=== PATIENT | female | born 1990 | race American Indian/Alaskan Native ===

== ENCOUNTER 2020-08-05 12:24 | Emergency (ER) | payer OTHER ==
[2020-08-05 12:33] VITALS: BP 129/85
--- NOTE | 2020-08-05 13:00 | XRay Report ---
CHEST 2 VIEWS INDICATION / CLINICAL INFORMATION: Cough and +COVID. COMPARISON: None available. FINDINGS: SUPPORT DEVICES: None. HEART / MEDIASTINUM: The heart size and pulmonary vasculature are normal. LUNGS / PLEURA: No significant pulmonary or pleural abnormality. No pneumothorax. ADDITIONAL FINDINGS: No significant additional findings. IMPRESSION: No acute findings. There is no evidence of pneumonia. Signer Name: Shawn Altamirano MD Signed: 08/05/2020 12:55 PM Workstation Name: [id number]
--- NOTE | 2020-08-05 13:08 | Emergency Department Report ---
ED General Adult HPI - General Chief complaint: Upper Respiratory Infection Stated complaint: CHEST PAIN/BACK PAIN Time Seen by Provider: 08/05/20 12:31 Source: patient Mode of arrival: Ambulatory Limitations: No Limitations - History of Present Illness Initial comments: 30-year-old -[place] female patient presents with complaints of cough, body aches, loss of taste and smell and tactile fever x2 days. Patient states she tested positive for COVID-19 on Saturday. She denies any chest pain, shortness of breath, abdominal pain, nausea/vomiting/diarrhea, or past medical history. Severity scale (0 -10): 0 - Related Data Previous Rx's Medication Instructions Recorded Last Taken Type Benzonatate 200 mg PO TID PRN #20 capsule 08/05/20 Unknown Rx Allergies Allergy/AdvReac Type Severity Reaction Status Date / Time No Known Allergies Allergy Unverified 08/05/20 12:31 ED Review of Systems ROS: Stated complaint: CHEST PAIN/BACK PAIN Other details as noted in HPI Constitutional: chills, fever, malaise, weakness. denies: diaphoresis ENT: denies: throat pain Respiratory: cough. denies: shortness of breath Cardiovascular: denies: chest pain, edema, syncope Gastrointestinal: denies: abdominal pain Genitourinary: denies: dysuria, frequency Skin: denies: rash, lesions Neurological: denies: headache ED Past Medical Hx - Past Medical History Previous Medical History?: No - Surgical History Past Surgical History?: No - Medications Home Medications: Home Medications Medication Instructions Recorded Confirmed Last Taken Type Benzonatate 200 mg PO TID PRN #20 capsule 08/05/20 Unknown Rx ED Physical Exam - General Limitations: No Limitations General appearance: alert, in no apparent distress, obese - Head Head exam: Present: atraumatic, normocephalic - Eye Eye exam: Present: normal appearance - ENT ENT exam: Present: mucous membranes moist - Neck Neck exam: Present: normal inspection, full ROM - Respiratory Respiratory exam: Present: normal lung sounds bilaterally. Absent: respiratory distress - Cardiovascular Cardiovascular Exam: Present: regular rate, normal rhythm - GI/Abdominal GI/Abdominal exam: Present: soft, normal bowel sounds - Neurological Exam Neurological exam: Present: alert, oriented X3, normal gait - Psychiatric Psychiatric exam: Present: normal affect, normal mood - Skin Skin exam: Present: warm, dry, intact, normal color. Absent: rash, cyanosis, diaphoretic ED Course Vital Signs 08/05/20 08/05/20 12:31 14:34 Temperature 97.9 F 98.2 F Pulse Rate 84 78 Respiratory 20 18 Rate Blood Pressure 129/85 [Right] O2 Sat by Pulse 99 100 Oximetry ED Medical Decision Making - Radiology Data Radiology results: report reviewed CHEST 2 VIEWS INDICATION / CLINICAL INFORMATION: Cough and +COVID. COMPARISON: None available. FINDINGS: SUPPORT DEVICES: None. HEART / MEDIASTINUM: The heart size and pulmonary vasculature are normal. LUNGS / PLEURA: No significant pulmonary or pleural abnormality. No pneumothorax. ADDITIONAL FINDINGS: No significant additional findings. IMPRESSION: No acute findings. There is no evidence of pneumonia. - Medical Decision Making 30-year-old -[place] female patient presents with complaints of cough, body aches, loss of taste and smell and tactile fever x2 days. Patient states she tested positive for COVID-19 on Saturday. She denies any chest pain, shortness of breath, abdominal pain, nausea/vomiting/diarrhea, or past medical history. Lung exam is normal. Chest x-ray is normal. Patient's vitals are normal and she is stable for discharge instructed patient on self quarantine, vitamin C and zinc, high water intake, rest, and signs and symptoms that should prompt immediate return to the emergency department in detail, she verbalized understanding. Critical care attestation.: If time is entered above; I have spent that time in minutes in the direct care of this critically ill patient, excluding procedure time. ED Disposition Clinical Impression: COVID-19 Disposition: DC-01 TO HOME OR SELFCARE Is pt being admited?: No Condition: Stable Instructions: COVID-19, Prevent the Spread of COVID-19 if You Are Sick - [facility] Additional Instructions: Recommend daily vitamin C and zinc and high water intake with plenty of sleep. You will need to quarantine for total of 14 days from the start of your symptoms. Prescriptions: Benzonatate 200 mg PO TID PRN #20 capsule PRN Reason: cough Referrals: [facility] [place] [Provider Group] - 3-5 Days (Recommend telemedicine visit)
== END 2020-08-05 14:33 | disposition home or self-care (01) ==
LOC: ED 12:24
DX: U07.1 COVID-19 (principal); Z79.899 Other long term (current) drug therapy
CPT/HCPCS: 71046